=== PATIENT | female | born 1990 | race Hispanic/Latino ===

== ENCOUNTER 2017-04-10 15:03 | Observation (INO) | payer BC ==
[2017-04-10 15:09] VITALS: BMI 37.5
--- NOTE | 2017-04-10 16:11 | ED PDOC ---
Arrival/HPI - History of Present Illness Time/Duration: > month Symptom Onset: Gradual Symptom Course: Intermittent Quality: Pressure, Tightness Activities at Onset: Rest Context: Home <LOPEZ BECKHAM - Last Filed: 04/10/17 16:52> <Lidia Salvador - Last Filed: 04/10/17 17:26> - General Chief Complaint: Palpitations Time Seen by Provider: 04/10/17 15:05 - History of Present Illness Narrative History of Present Illness (Text): 04/10/17 16:00 Mrs. Joseph is a 26 year old female with no significant past medical history presents to the [facility] [place] her PMD's office for abnormal labs/testing done in [place]. Patient reports that she recently returned from [place], where she was taking care of her ill father for 9 months, and while there she was evaluated extensively for an "abnormal heart beat". Testing, per patient, includes cardiac MRI, 72 hour holter monitor, and echocardiogram. They reportedly told her that "one side of her heart isn't working as well as the other" and that her heart "skips a beat as well as increases in rate while she' s sleeping 120-146". Patient reports that for several months she experiences self limited episodes of vertigo, non-radiating chest pressure and shortness of breath. These episodes last anywhere from 5 to 30 minutes but resolve without intervention. Currently, patient endorses substernal chest tightness and pressure that is non-radiating with minimal associated SOB. Patient denies fever , chills, headache, changes in her vision, chest pain, palpitations, cough, hemoptysis, abdominal pain, N/V, diarrhea, pain/burning with urination, rashes, or any numbness/tingling/weakness/pain/swelling in any of her extremities. 04/10/17 16:48 (LOPEZ BECKHAM) Past Medical History - Provider Review Nursing Documentation Reviewed: Yes - Travel History Have you recently traveled outside [place] w/in the past 3 mons?: Yes If Yes, travel location?: [place] - Past History Past History: No Previous - Infectious Disease Hx of Infectious Diseases: None - Tetanus Immunization Tetanus Immunization: Unknown - Past Medical History Past Medical History: No Previous - Cardiac Hx Cardiac Disorders: No - Pulmonary Hx Respiratory Disorders: No - Neurological Hx Neurological Disorder: No - HEENT Hx HEENT Disorder: No - Renal Hx Renal Disorder: No - Endocrine/Metabolic Hx Endocrine Disorders: No - Hematological/Oncological Hx Blood Disorders: No - Integumentary Hx Dermatological Disorder: No - Musculoskeletal/Rheumatological Hx Musculoskeletal Disorders: No - Gastrointestinal Hx Gastrointestinal Disorders: No - Genitourinary/Gynecological Hx Genitourinary Disorders: No - Psychiatric Hx Psychophysiologic Disorder: No Hx Substance Use: No - Surgical History Hx Section: Yes (2012) - Anesthesia Hx Anesthesia: Yes Hx Anesthesia Reactions: No Hx Malignant Hyperthermia: No - Suicidal Assessment Feels Threatened In Home Enviroment: No <LOPEZ BECKHAM - Last Filed: 04/10/17 16:52> Family/Social History - Physician Review Nursing Documentation Reviewed: Yes Family/Social History: Hypertension, CAD/ME Smoking Status: Never Smoked Hx Alcohol Use: No Hx Substance Use: No <LOPEZ BECKHAM - Last Filed: 04/10/17 16:52> Allergies/Home Meds <OLPEZ BECKHAM - Last Filed: 04/10/17 16:52> <Lidia Salvador - Last Filed: 04/10/17 17:26> Allergies/Adverse Reactions: Allergies No Known Allergies Allergy (Verified 04/10/17 15:34) Home Medications: Home Meds Medication Instructions Recorded Confirmed No Known Home Med 04/10/17 04/10/17 Review of Systems - Physician Review All systems were reviewed & negative as marked: Yes - Review of Systems Constitutional: Normal. absent: Fatigue, Weight Change, Fevers, Night Sweats Eyes: Normal. absent: Vision Changes, Photophobia ENT: Normal. absent: Tinnitus, Sore Throat Respiratory: SOB, Other (Denies hemoptysis). absent: Normal, Cough, Sputum, Wheezing Cardiovascular: Other (non-radiating chest tightness). absent: Normal, Chest Pain, Palpitations, Edema, Calf Pain, Syncope Gastrointestinal: Normal. absent: Abdominal Pain, Constipation, Diarrhea, Nausea, Vomiting Genitourinary Female: Normal, Other (No burning with urination). absent: Dysuria Musculoskeletal: Other Skin: Normal. absent: Rash Neurological: Normal, Other (Limited episodes of vertigo; No numbness/tingling/ weakness/swelling of any extremity). absent: Headache, Dizziness <LOPEZ BECKHAM - Last Filed: 04/10/17 16:52> Physical Exam Vital Signs Reviewed: Yes Temperature: Afebrile Blood Pressure: Normal Pulse: Regular Respiratory Rate: Normal Appearance: Positive for: Well-Appearing, Non-Toxic, Comfortable Pain Distress: None Mental Status: Positive for: Alert and Oriented X 3 - Systems Exam Head: Present: Atraumatic, Normocephalic Pupils: Present: PERRL Extroacular Muscles: Present: EOMI Conjunctiva: Present: Normal Mouth: Present: Moist Mucous Membranes Pharnyx: Present: Normal. No: ERYTHEMA, EXUDATE, TONSILS ENLARGED Nose (External): Present: Atraumatic Neck: Present: Normal Range of Motion, Trachea Midline. No: JVD, Lymphadenopathy Respiratory/Chest: Present: Clear to Auscultation, Good Air Exchange. No: Respiratory Distress, Accessory Muscle Use, Wheezes, Decreased Breath Sounds, Rales, Rhonchi, Tachypneic, Tender to Palpation Cardiovascular: Present: Regular Rate and Rhythm, Normal S1, S2, Peripheal Pulses Present. No: Irregular Rhythm, Tachycardic, Bradycardic, Rub, Gallop, Muffled Abdomen: Present: Normal Bowel Sounds. No: Tenderness, Distention, Peritoneal Signs Upper Extremity: Present: Normal Inspection, NORMAL PULSES, Capillary Refill < 2s. No: Cyanosis, Edema Lower Extremity: Present: NORMAL PULSES, Capillary Refill < 2 s. No: Normal Inspection, Edema, CALF TENDERNESS Neurological: Present: GCS=15, CN II-XII Intact, Speech Normal Skin: Present: Warm, Dry, Normal Color. No: Rashes Psychiatric: Present: Alert, Oriented x 3, Normal Insight, Normal Concentration <LOPEZ BECKHAM - Last Filed: 04/10/17 16:52> Vital Signs Temp Pulse Resp BP Pulse Ox 04/10/17 15:03 99 F 72 16 131/83 98 Medical Decision Making - EKG Interpretation Interpreted by ED Physician: Yes Type: 12 lead EKG Comparison: Com.w/previous EKG (01/25/14: 81BPM, NSR, no ST elevations/ depressions, no T-wave abnormalities) <LOPEZ BECKHAM - Last Filed: 04/10/17 16:52> <Lidia Salvador - Last Filed: 04/10/17 17:26> ED Course and Treatment: 04/10/17 16:15 Impression: 26 year old female with no significant past medical history presents to the [facility] [place] PMD's office for abnormal labs/testing done in [place] Plan: -CBC, CMP, D-Dimer, Cardias Iso's, POC test, BNP, Amylase, Lipase -Two-View Chest X-Ray -Patient to be admitted to Dr. Corrigan's service per Dr. Corrigan's request for further cardiac work-up (Dr. Unger to be consulted) -Reassess Prior Visits: Notes and results from previous visits were reviewed. 01/25/14: Patient was seen for anxiety related to work and home life. Normal EKG and refusal of CXR at that time. (LOPEZ BECKHAM) 04/10/17 17:25 Seen and examined with resident; patient apparently found to have heart disease in [place] and placed on plavix and here with near syncope and palpitations - will need observation on tele with cardio consult; resident discussed with Dr. Corrigan. (Lidia Salvador) - Lab Interpretations Lab Results: 04/10/17 16:05 04/10/17 16:05 Lab Results 04/10/17 16:05: Sodium 139, Potassium 4.2, Chloride 105, Carbon Dioxide 20 L, Anion Gap 18, BUN 16, Creatinine 0.6, Est GFR ( Amer) > 60, Est GFR (Non- Af Amer) > 60, Random Glucose 96, Calcium 9.8, Total Bilirubin 0.5, AST 34, ALT 72 H, Alkaline Phosphatase 99, Lactate Dehydrogenase 539, Total Creatine Kinase 130, Troponin I < 0.01, NT-Pro-B Natriuret Pep < 11.1, Total Protein 7.6, Albumin 4.7, Globulin 2.9, Albumin/Globulin Ratio 1.6, Amylase 46, Lipase 88 04/10/17 16:05: D-Dimer, Quantitative 0.28 04/10/17 16:05: WBC 9.8, RBC 4.67, Hgb 13.8, Hct 40.2, MCV 86.1, MCH 29.6, MCHC 34.3, RDW 13.0, Plt Count 330, MPV 9.5, Gran % 66.4, Lymph % (Auto) 24.7, Hamlin % (Auto) 6.5 H, Eos % (Auto) 2.0, Baso % (Auto) 0.4, Gran # 6.49, Lymph # 2.4, Hamlin # 0.6, Eos # 0.2, Baso # 0.04 - RAD Interpretation Radiology Orders: 04/10/17 15:36 CHEST TWO VIEWS (PA/LAT) [RAD] Stat - EKG Interpretation EKG Interpretation (Text): 04/10/17 16:20 94bpm, NSR, no ST elevations/depressions, no T-wave abnormalities, normal intervals (LOPEZ BECKHAM) - PA / TALLOW PUMPER / Resident Statement MD/DO has reviewed & agrees with the documentation as recorded. / has examined the patient and agrees with the treatment plan. <Lidia Salvador - Last Filed: 04/10/17 17:26> Disposition/Present on Arrival - Present on Arrival Any Indicators Present on Arrival: No History of DVT/PE: No History of Uncontrolled Diabetes: No Urinary Catheter: No History of Decub. Ulcer: No History Surgical Site Infection Following: None <LOPEZ BECKHAM - Last Filed: 04/10/17 16:52> - Disposition Have Diagnosis and Disposition been Completed?: Yes Disposition Time: 16:20 Patient Plan: Observation, Telemetry <Lidia Salvador - Last Filed: 04/10/17 17:26> - Disposition Diagnosis: Chest pain, Near syncope Disposition: HOSPITALIZED Condition: FAIR
[2017-04-10 16:22] LABS: BASO # 0.04 K/mm3 (0.0-2.0); BASO % 0.4 % (0.0-3.0); EOS # 0.2 (0.0-0.7); GRAN # 6.49 (1.4-6.5); GRAN % 66.4 % (50.0-68.0); HEMATOCRIT 40.2 % (36.0-48.0); LYMPH # 2.4 (1.2-3.4); LYMPH % 24.7 % (22.0-35.0); MEAN CELL VOLUME 86.1 fl (80.0-105.0); MEAN CORPUSCULAR HEMOGLOBIN 29.6 pg (25.0-35.0); MEAN CORPUSCULAR HGB CONC 34.3 g/dl (31.0-37.0); MEAN PLATELET VOLUME 9.5 fl (7.0-11.0); MONO # 0.6 (0.1-0.6); MONO % 6.5 % (1.0-6.0); WHITE BLOOD COUNT 9.8 10^3/ul (4.5-11.0)
[2017-04-10 16:29] LABS: ALB/GLOB RATIO 1.6 (1.1-1.8); ALKALINE PHOSPHATASE 99 U/L (38-126); ALT/SGPT 72 U/L (7-56); AMYLASE 46 U/L (35-125); AST/SGOT 34 U/L (14-36); BILIRUBIN,TOTAL 0.5 mg/dL (0.2-1.3); BLOOD UREA NITROGEN 16 mg/dL (7-21); CALCIUM 9.8 mg/dL (8.4-10.5); CARBON DIOXIDE 20 mmol/L (21-33); CHLORIDE 105 mmol/L (98-107); GFR AFRICAN-AMERICAN > 60; GLUCOSE,RANDOM 96 mg/dL (70-110); LIPASE 88 U/L (23-300); POTASSIUM 4.2 mmol/L (3.6-5.0); SODIUM 139 mmol/L (132-148); TOTAL PROTEIN 7.6 g/dL (5.8-8.3)
[2017-04-10 16:42] LABS: TROPONIN I < 0.01 ng/mL
--- NOTE | 2017-04-10 18:19 | RAD ---
HISTORY: Chest pain. COMPARISON: No prior. TECHNIQUE: Chest PA and lateral FINDINGS: LUNGS: No active pulmonary disease. PLEURA: No significant pleural effusion identified. No pneumothorax apparent. CARDIOVASCULAR: Normal. OSSEOUS STRUCTURES: No significant abnormalities. VISUALIZED UPPER ABDOMEN: Normal. OTHER FINDINGS: None. IMPRESSION: No active disease.
[2017-04-10 20:44] LABS: CHOLESTEROL 224 mg/dL (130-200)
[2017-04-11 01:39] LABS: TROPONIN I < 0.01 ng/mL
--- NOTE | 2017-04-11 02:32 | CP.PCM.PN ---
Subjective - Date & Time of Evaluation Date of Evaluation: 04/11/17 Time of Evaluation: 02:31 - Subjective Subjective: Patient was seen at bedside. She complained of headache, mild , on left side. Has no other complaints. Denied dizziness, nausea, weakness, paraesthesia, eye, ear , nose symptoms. Medical record was reviewed. Admitted for chest pain, near syncope. Has no significant medical history. Objective - Vital Signs/Intake and Output Vital Signs (last 24 hours): Temp Pulse Resp BP Pulse Ox 98.7 F 76 19 117/69 98 04/10/17 23:30 04/10/17 23:30 04/10/17 23:30 04/10/17 23:30 04/10/17 23:30 - Medications Medications: Current Medications Aspirin (Ecotrin) 81 mg PO DAILY CAROLINE Famotidine (Pepcid) 40 mg PO HS CAROLINE Last Admin: 04/10/17 21:19 Dose: 40 mg - Constitutional Appears: Well, No Acute Distress - Head Exam Head Exam: ATRAUMATIC, NORMAL INSPECTION, NORMOCEPHALIC - Eye Exam Eye Exam: Normal appearance - ENT Exam ENT Exam: Normal External Ear Exam - Neck Exam Neck Exam: Normal Inspection - Respiratory Exam Respiratory Exam: NORMAL BREATHING PATTERN - Cardiovascular Exam Cardiovascular Exam: absent: JVD - GI/Abdominal Exam GI & Abdominal Exam: absent: Distended - Rectal Exam Rectal Exam: Deferred (Deferred.) - Exam Additional comments: Deferred. - Extremities Exam Extremities Exam: Normal Inspection - Back Exam Back Exam: vertebral tenderness - Neurological Exam Neurological Exam: Alert, Awake - Psychiatric Exam Psychiatric exam: Normal Affect, Normal Mood - Skin Skin Exam: Normal Color Assessment and Plan - Assessment and Plan (Free Text) Assessment: Headache. Skipped beat. Near syncope. Chest pain. Obesity. Plan: Tylenol 650 mg PO x 1. Continue present management.
[2017-04-11 06:21] LABS: BASO # 0.03 K/mm3 (0.0-2.0); BASO % 0.4 % (0.0-3.0); EOS # 0.2 (0.0-0.7); GRAN # 3.98 (1.4-6.5); GRAN % 51.7 % (50.0-68.0); LYMPH # 2.9 (1.2-3.4); LYMPH % 37.7 % (22.0-35.0); MEAN CELL VOLUME 86.9 fl (80.0-105.0); MEAN CORPUSCULAR HEMOGLOBIN 29.2 pg (25.0-35.0); MEAN CORPUSCULAR HGB CONC 33.6 g/dl (31.0-37.0); MEAN PLATELET VOLUME 9.4 fl (7.0-11.0); MONO # 0.6 (0.1-0.6); MONO % 7.2 % (1.0-6.0); RED CELL DISTRIBUTION WIDTH 13.3 % (11.5-14.5); WHITE BLOOD COUNT 7.7 10^3/ul (4.5-11.0)
[2017-04-11 06:54] LABS: ALB/GLOB RATIO 1.3 (1.1-1.8); ALKALINE PHOSPHATASE 87 U/L (38-126); ALT/SGPT 60 U/L (7-56); AST/SGOT 28 U/L (14-36); BILIRUBIN,TOTAL 0.9 mg/dL (0.2-1.3); BLOOD UREA NITROGEN 17 mg/dL (7-21); CALCIUM 9.3 mg/dL (8.4-10.5); CARBON DIOXIDE 22 mmol/L (21-33); CHLORIDE 107 mmol/L (95-110); GFR AFRICAN-AMERICAN > 60; GLUCOSE,RANDOM 89 mg/dL (70-110); POTASSIUM 4.1 mmol/L (3.6-5.0); SODIUM 141 mmol/L (132-148); TOTAL PROTEIN 7.2 g/dL (5.8-8.3)
[2017-04-11 08:07] LABS: TROPONIN I < 0.01 ng/mL
--- NOTE | 2017-04-11 08:46 | CARD ---
APPROVED REPORT EKG Measurement Heart [id number] TN [id number] <Conclusion> Normal sinus rhythm Normal ECG No change
--- NOTE | 2017-04-11 14:44 | CON ---
DATE: 04/11/2017 REASON FOR CONSULTATION: Cardiac evaluation, abnormal EKG, abnormal heart function and abnormal lab in [place]. The patient was seen by Dr. Corrigan in the office and sent for evaluation. BRIEF CLINICAL HISTORY: This is a 26-year-old female with past medical history significant for eclampsia during the last and her mother is a nurse in [place] and recently test was done including MRI, Holter and Echo and was told her heart was not pumping good, 15% heart is pumping and has a skipped beat. Yesterday, the patient went to see Dr. Corrigan and mentioned that when she sleeps her heart rate was 126. She had an EKG and sent the patient to ER for cardiac evaluation. The patient complains of dyspnea on exertion on climbing stairs, very short of breath and feels very tired. The patient initially workup done in [place] while visiting her dad who underwent coronary artery bypass surgery recently, the patient did not pay attention to her health and later on came here. Yesterday, went to see Dr. Corrigan and was sent for cardiac evaluation. PAST MEDICAL HISTORY: As mentioned above, says that her heart has skipped beat, abnormal heart beat and heart pump 15% and becomes fast when she sleeps. SOCIAL HISTORY: Denies smoking, denies any history of alcohol abuse. CURRENT MEDICATIONS: None. FAMILY HISTORY: Coronary artery disease in the father, had coronary artery bypass surgery. REVIEW OF SYSTEMS: As per HPI. PHYSICAL EXAMINATION VITAL SIGNS: As follows, temperature afebrile, heart rate 70, blood pressure 140/84. HEENT: PERRLA. Extraocular muscles intact. NECK: Supple. No carotid bruit or no thyromegaly. CHEST: Clear to auscultation. HEART: S1 and S2, regular. ABDOMEN: Soft. EXTREMITIES: Clubbing and cyanosis negative. LABORATORY DATA: Blood workup as follows: WBC 4.7, hemoglobin 13.1, hematocrit 39.0, and platelet count 319. Chemistry shows sodium 141, potassium 4.1, chloride 107, carbon dioxide 22, anion gap of 16, BUN 17, and creatinine 0.7, Troponin 0.01. IMPRESSION: Rule out cardiomyopathy. Rule out paroxysmal atrial fibrillation. Rule out mitral regurgitation. Rule out any structural heart disease. RECOMMENDATIONS: We will do a lipid profile, TSH, echo with stress test. Further recommendation after initial workup. Monitored in telemetry. EKG showed normal sinus heart rate of 94. No acute ST-T changes noted. Further recommendations will depend on hospital course. We will follow with you.. Thank you Dr. Corrigan for providing us the opportunity in taking care of the patient, Vira Joseph. Jelani Thomas MD
--- NOTE | 2017-04-11 17:23 | CARD ---
APPROVED REPORT EXAM: Two-dimensional and M-mode echocardiogram with Doppler and color Doppler. INDICATION CP/LVFX 2D DIMENSIONS Left Atrium (2D)4.5 (1.6-4.0cm)IVSd0.9 (0.7-1.1cm) LVDd4.4 (3.9-5.9cm)PWd1.1 (0.7-1.1cm) LVDs2.9 (2.5-4.0cm)FS (%) 32.9 % LVEF (%)61.6 (>50%) M-Mode DIMENSIONS Aortic Root3.00 (2.2-3.7cm)Aortic Cusp Exc.1.70 (1.5-2.0cm) Aortic Valve AoV Peak Rudqxiij020.0cm/Costa Peak GR.10mmHg Mitral Valve MV E Pmuucewk70.1cm/sMV A Argegbbu79.5cm/sE/A ratio0.9 TDI Lateral E' Peak V14.10cm/sMedial E' Peak V9.85cm/sE/Lateral E'5.1 E/Medial E'7.3 Pulmonary Valve PV Peak Mehbmetd94.5cm/sPV Peak Grad.3mmHg Tricuspid Valve TR Peak Mqfkqsax847mx/sRAP [id number] Peak Gr.28mmHg GVVC46cxRm LEFT VENTRICLE The left ventricle is normal size. There is normal left ventricular wall thickness. The left ventricular function is normal.EF-55-60% There is normal LV segmental wall motion. Transmitral Doppler flow pattern is Grade III-reversible restrictive diastolic dysfunction. No left ventricle thrombus noted on this study. There is no ventricular septal defect visualized. There is no left ventricular aneurysm. There is no mass noted in the left ventricle. RIGHT VENTRICLE The right ventricle is normal size. There is normal right ventricular wall thickness. The right ventricular systolic function is normal. ATRIA The left atrium is borderline dilated. The right atrium size is normal. The interatrial septum is intact with no evidence for an atrial septal defect. AORTIC VALVE The aortic valve is normal in structure. No aortic regurgitation is present. There is no aortic valvular stenosis. There is no aortic valvular vegetation. MITRAL VALVE The mitral valve is thickened but opens well. Mitral regurgitation is mild. There is no mitral valve stenosis. There is no evidence of mitral valve prolapse. TRICUSPID VALVE The tricuspid valve leaflets are thickened , but open well. There is mild tricuspid regurgitation.RVSP-38 mmof Hg. There is no tricuspid valve stenosis. There is no tricuspid valve prolapse or vegetation. PULMONIC VALVE The pulmonic valve is borderline thickened. There is trace pulmonic valvular regurgitation. There is no pulmonic valvular stenosis. GREAT VESSELS The aortic root is normal in size. The ascending aorta is normal in size. The pulmonary artery is normal. The IVC is normal in size and collapses >50% with inspiration. PERICARDIAL EFFUSION There is no pleural effusion. There is no pericardial effusion. <Conclusion> The left ventricle is normal size. There is normal left ventricular wall thickness. The left ventricular function is normal.EF-55-60% Mitral regurgitation is mild. There is mild tricuspid regurgitation.RVSP-38 mmof hg.
--- NOTE | 2017-04-11 20:26 | CARD ---
APPROVED REPORT Protocol: PIA Test Type: Sestamibi Stress Test Attending Physician: Dr. Jelani Unger Referring Physician: Dr. Ramya Corrigan Test Indications: Chest Pain Height:5 ft 9 in Weight:253lbs Medications: Asaprin,Pepcid Medical History: 26 y/o female. Hx of chest pain,family hx of heart disease. Target HR: 192 bpm Resting ECG: RSR. Resting Heart Rate: 98 bpm Resting Blood Pressure: 114/80mmHg Submaximum (85%): 163 bpm POST EXERCISE Reason for Termination: Fatigue and Dizzyness. Target HR: No Max HR: 173 bpm 90% of Maximum Predicted HR: 192 bpm Exercise duration: 09:01 min:sec, 4 Stage Exercise capacity: 10.1METs Max Blood Pressure: 180/78mmHg Blood Pressure response to exercise: normal resting BP - appropriate response Heart Rate response to exercise: appropriate Chest Pain: No, none Angina index: 0 Arrhythmia: No, none ST Change: No, none Deviation: 0 mm TEST SUMMARY [id number]:[id number]/.0. [id number]/80.0. PRETESTHYPERV.00:[id number]/80.0. PRETESTWARM-UP06:590.00.01.098/.0. EXERCISESTAGE 103:001.710.04.6123/.0. EXERCISESTAGE 203:[id number]/80.0. EXERCISESTAGE 303:[id number]/80.0. EXERCISESTAGE 400:013.576.022.5271/.0. [id number]:[id number]/78.0. INTERPRETATION Stress EKG Conclusion: MYOVIEW NUCLEAR STRESS TEST STOPPED AFTER 9 MINUTES OF PIA PROTOCOL DUE TO FATIGUE. PATIENT ACHIEVED 90% OF PREDICTED HEART RATE. NO CHEST PAIN. NO ST-T CHANGES. NUCL;EAR SCAN REPORT PENDING. Signed by Jelani Unger Electronically Approved: 04/11/2017 12:04:15 EXAM: Myocardial Perfusion REST/STRESS Stress Test Type: Exercise Treadmill Imaging Protocol Rest Spect myocardial perfusion imaging was performed in supine position 50 minutes following the injection of 10.4 mCi of Tc-99 Myoview. At peak stress, the patient was injected intravenously with 30.9mCi of Tc-99 tetrofosmin after an exercise time of 9 minutes and 01 seconds. Gated Stress Spect was performed 65 minutes after intravenous Tc-99 Myoview injection. The images were gated to evaluate regional wall motion and calculate ventricular ejection fraction.Images were reconstructed using backfilter projection method in short horizontal and verticle long axis. Spect slices were generated. LV Perfusion The quality of the study is good. The left ventricle is within normal limits in size. The right ventricle is unremarkable. The lung uptake is normal. The distribution of tracer reveals mildly and diffusely decreased perfusion involving anterior wall on the stress study. The remainder of the LV myocardium is unremarkable. The rest myocardial perfusion study shows no significant change. Wall Motion Wall motion study shows good contractility of the left ventricle. LVEF = 64%. Conclusion 1. Essentially normal SPECT myocardial perfusion study. 2. Fixed, anterior defect is most likely due to breast attenuation. 3. Normal gated wall motion of the left ventricle.
--- NOTE | 2017-04-11 21:15 | CON ---
PULMONARY CONSULTATION DATE: 04/11/2017 REFERRING PHYSICIAN: Ramya Corrigan MD REASON FOR CONSULT: Cardiomyopathy, shortness of breath, may have sleep apnea syndrome. HISTORY OF PRESENT ILLNESS: This is a 26 years old female with history of hypertension and since her delivery she has gained a lot of weight, admit to have a loud snoring, and daytime sleepy. She recently traveled to [place], where her mother is a physician, apparently she had echocardiogram done where she was told that she has high pressures and . She came back to [facility], seen Dr. Corrigan complaining about shortness of breath and was sent to ER and admitted. Presently, sitting up in a bed, complaining of loud snoring, daytime sleepy, tired, and short of breath with exertion. Also has an uncontrolled hypertension. As outpatient has been taking some medication from [place] though. PAST MEDICAL HISTORY: Hypertension and obesity. FAMILY HISTORY: Extensive history of coronary artery disease. SOCIAL HISTORY: Denies smoking or alcohol. MEDICATIONS: She is Ecotrin 81 mg daily and Pepcid 40 mg daily. REVIEW OF SYSTEMS: No headache, no rhinitis. Admits to have snoring, daytime sleepy, and tired. She has on and off palpitations, short of breath with exertion. No chest pain at present. No nausea, vomiting, or diarrhea. No leg pain or leg swelling. PHYSICAL EXAMINATION GENERAL: In no acute distress. VITAL SIGNS: Temperature 98, heart rate is 75, respiratory rate is 20, blood pressure 128/60, and pulse ox 99% on room air. HEENT: Moist mucous membrane. Crowded airway. Mallampati score is IV. NECK: Supple. No JVD. LUNGS: Fair airflow with few rhonchi. HEART: S1 and S2. ABDOMEN: Soft and nontender. No organomegaly. EXTREMITIES: There is no edema. NEUROLOGICAL: Awake and alert. Follows simple commands. LABORATORY DATA: Shows hemoglobin 13.1, hematocrit 39.0, WBC 7.7, platelet is 319, D-dimer is 0.28. Sodium 141, potassium 4.1, chloride 107, bicarbonate 22, BUN 17, creatinine 0.7. Glucose 89, hemoglobin A1c 5.5, calcium 9.3, AST 28, ALT 60, alkaline phosphorus 87, LDH 399, troponin less than 0.01, albumin is 4.0, TSH 2.2. Echocardiogram done today shows unremarkable LV, but right ventricular systolic pressure is 38. She had chest x-ray done, which showed no active pulmonary disease. IMPRESSION AND PLAN: Obstructive sleep apnea syndrome, history of hypertension, pulmonary hypertension, and obesity. She will need sleep study as outpatient. Also suggest PFT. We will suggest to do venous Doppler lower extremity and VQ scan to rule out thromboembolic disease because of pulmonary hypertension even though mild, but she is complaining about symptoms. Thank you and we will follow with you. Jelani Elam MD
[2017-04-12 00:02] VITALS: RESP 20
--- NOTE | 2017-04-12 10:09 | HP ---
CHIEF COMPLAINT: Shortness of breath, chest pain. HISTORY OF PRESENT ILLNESS: Ms. Constantino is a 26-year-old, my private patient with a history of hypertension, since had a delivery, she has gained lot of weight, admits to have a lot of snoring and daytime sleepy. Recently, traveled to [place], stayed there for couple of months. Her mother is physician. Apparently, she had echocardiography done that shows left ventricular hypertrophy. She showed me a copy. In [place], she was given Plavix, aspirin, and some blood pressure medicine. She came back to [facility], came in my office with the complaints of shortness of breath, chest pain, was not taking any medications. I sent her to [facility] emergency room. The patient is seen in telemetry right now, went for hypertension. PAST MEDICAL HISTORY: Hypertension and obesity. FAMILY HISTORY: Extensive history of coronary artery disease. SOCIAL HISTORY: No smoking, no drugs, no ethanol. HOME MEDICATIONS: Ecotrin, Pepcid. As per the patient, taking Plavix from [place]. REVIEW OF SYSTEMS: The patient was seen and examined on the beside in the telemetry, right now looking comfortable. No nausea, vomiting, or diarrhea. No hematuria or hematochezia. No swelling of the leg. No chest pain. At this moment, no headache, no dizziness. Earlier day, she has episode of headache and Tylenol was given by Dr. Selby, [place] physician. No swelling of the leg. PHYSICAL EXAMINATION: VITAL SIGNS: Temperature 98.5, pulse 103, 75, 85, 74, 55; blood pressure 128/69, respiratory rate 18. HEENT: Head is normocephalic and atraumatic. Eyes: PERRLA. Extraocular muscles are intact. Conjunctivae clear. Nose is patent. Mucous membrane is moist. NECK: Supple. No carotid bruit or thyromegaly. CHEST: Bilaterally symmetrical. HEART: S1 and S2 positive. LUNGS: Clear to auscultation. ABDOMEN: Soft. Bowel sounds present. No organomegaly. EXTREMITIES: No edema. No cyanosis. NEUROLOGIC: The patient is awake and alert. Moving all four extremities. No focal deficits. LABORATORY DATA: White blood cells 7.7, hemoglobin 13.1, hematocrit 39.0, platelets 319. Sodium 141, potassium 4.1, BUN 17, creatinine 0.7, AST 50, triglyceride 193, cholesterol 224, LDL 154. ASSESSMENT AND PLAN: Ms. Constantino is a 21 years old lady with hypercholesterolemia, hypertriglyceridemia, abnormal liver function test, history of hypertension, obesity, rule out obstructive sleep apnea syndrome, pulmonary hypertension. Reviewed Dr. Elam's notes. According to that, the patient needs sleep study, also suggested PFT. Positive venous Doppler of the lower extremities and ventilation/perfusion scan to rule out thromboembolic disease. Because of pulmonary hypertension even though mild, but she is complaining about symptoms. Seen by Dr. Thomas, welder tool and die, rule out cardiomyopathy as per Dr. Thomas, rule out paroxysmal atrial fibrillation, mitral regurgitation, rule out any structural heart disease. The patient went for stress test, monitoring the patient in the telemetry. EKG shows normal sinus heart rate of 94, no acute ST-T changes noted. According to Dr. Roberto Lanier, stress test shows essentially normal SPECT myocardial perfusion study, defect is most likely due to the breast attenuation and normal anterior wall motion of the left ventricle, ejection fraction 64%. Chest x-ray done, reviewed by me, is no active disease. Appreciated Dr. Elam and Dr. Thomas's input. The patient is going for duplex study of the lower extremities getting Ecotrin, Pepcid, and Tylenol. We will repeat labs. We will start Lipitor for hypercholesterolemia. We will follow up. Ramya Corrigan MD MTDKrunal
--- NOTE | 2017-04-12 14:22 | PN ---
DATE: 04/12/2017 LOCATION: Patient in room 370, bed 2. REASON FOR CONSULTATION: Followup abnormal EKG, history of palpitation during the night, the patient was told in that her heart pump works 15%. The patient gets fatigued. SUBJECTIVE: The patient lying flat in bed without chest pain, shortness of breath, palpitation. PHYSICAL EXAMINATION VITAL SIGNS: Blood pressure 127/81, respirations 20, pulse 81, temperature 98.4. HEENT: Normocephalic. Pupils, normal. Conjunctivas, normal. Nose and throat, normal. NECK: JVP. Carotids are equal. THORAX: AP diameter normal. LUNGS: Clear. CARDIOVASCULAR: S1 and S2. ABDOMEN: Soft, no tenderness, no organomegaly. Bowel sounds normal. EXTREMITIES: No clubbing. No cyanosis. LABORATORY DATA: WBC 7.7, hemoglobin 13.1, hematocrit 39.0, platelets 319. Sodium 141, potassium 4.1. BUN 17. Creatinine 0.7. AST 28. ALT 60. Troponin time two negative. TSH 2.2. Triglycerides 193,. Cholesterol 224. LDL 154. HDL 49. The patient had echo on 04/11, which showed left ventricular normal size. Normal ventricle wall thickness. Left ventricle ejection fraction normal 55% to 60%. Mild mitral regurgitation. Mitral tricuspid regurgitation. RVSP 38 mmHg. The patient yesterday had a stress test, which showed normal myocardial scan with LV ejection fraction around 60% to 64%. DIAGNOSES: Palpitation during the night, rule out cardiac arrhythmia. The patient had eclampsia during the last so they are concerned about cardiomyopathy. The patient is on aspirin 81 mg daily, atorvastatin 10 mg daily, advised the patient to start exercise and lose weight. Follow low cholesterol diet. We will follow with you. Jelani Unger MD
--- NOTE | 2017-04-12 21:35 | PN ---
DATE: SUBJECTIVE: The patient is a 26 years old female. The patient is seen and examined at the bedside. Looking comfortable. asked about the patient, last night during sleep she was having palpitations. No fever. No chills. No headache. No dizziness. PHYSICAL EXAMINATION: VITAL SIGNS: Temperature 97.7, pulse 73, blood pressure 130/83, and respiratory rate 20. HEENT: Head, normocephalic and atraumatic. Eyes, PERRLA. Extraocular muscles intact. Conjunctivae clear. Nose patent. Mucous membranes moist. NECK: Supple. No carotid bruits. No JVD or thyromegaly. CHEST: Bilaterally symmetrical. HEART: S1 and S2 positive. LUNGS: Clear to auscultation. ABDOMEN: Soft. Bowel sounds positive. No organomegaly. EXTREMITIES: No edema. No cyanosis. NEUROLOGICAL: The patient is awake and alert. Moving all 4 extremities. No focal deficits. MEDICATIONS: Ecotrin, Lipitor, Pepcid, and Tylenol. LABORATORY DATA: White blood cell 7.7, hemoglobin 13.1, hematocrit 39.0, and platelets 319. Sodium 141, potassium 4.1, BUN 17, and creatinine 0.7. AST 60 and triglycerides 193. ASSESSMENT AND PLAN: Ms. Vira Joseph is a 26 years old lady with abnormal liver function test, hypercholesterolemia, hypertriglyceridemia, and obesity, seen by Dr. Unger, nipple threader. According to Dr. Unger, it looks like the patient has cardiac arrhythmia. The patient has history of during last , so they are concerned about post- cardiomyopathy. The patient on aspirin and getting atorvastatin for hypertriglyceridemia. Asked her to lose weight. Education done. Seen by Dr. Elam, railroad detective. The patient is suppose to go for weekly scan to rule out pulmonary embolism and pulmonary hypertension. It looks like the patient has obstructive sleep apnea syndrome. According to Dr. Elam, the patient needs sleep study and PFT. Extremity ultrasound is done, results are pending. Chest x-ray done reviewed by me. Electrocardiogram done. We will continue present treatment. Gastrointestinal and deep venous thrombosis tube prophylaxis. Repeat labs. We will follow. Ramya Corrigan MD MTDD
--- NOTE | 2017-04-12 21:38 | US ---
HISTORY: Leg pain and swelling. Evaluate for DVT PHYSICIAN(S): Macario Espinal MD. TECHNIQUE: Duplex sonography and color-flow Doppler with graded compression were used to evaluate the deep venous systems of both lower extremities. FINDINGS: The visualized deep venous systems of both lower extremities are sonographically normal and compressible. Normal wave forms and augmentation are seen. There is no sonographic evidence for deep venous thrombosis in the visualized segments of both lower extremities. IMPRESSION: No sonographic evidence for deep venous thrombosis in the visualized segments of both lower extremities.
--- NOTE | 2017-04-12 22:24 | PN ---
PULMONARY PROGRESS NOTE DATE: 04/12/2017 REFERRING PHYSICIAN: Dr. Corrigan. SUBJECTIVE: She is sitting up in bed. Day was unremarkable. Feels okay. No headache. No rhinitis, no nausea, no vomiting, diarrhea, leg pain or leg swelling. OBJECTIVE GENERAL: No acute distress. VITAL SIGNS: Temperature is 98, heart rate is 73, respiratory rate is 20, blood pressure 130/80 and pulse ox 99% on room air. HEENT: Moist mucus membrane. Crowded airway. Mallampati score is IV. NECK: Supple. No JVD. LUNGS: Has a fair airflow with few rhonchi. HEART: S1 and S2. ABDOMEN: Soft and nontender. No organomegaly. EXTREMITIES: No edema. NEUROLOGIC: Awake and alert. Follows simple commands. MEDICATIONS: She is on Ecotrin 81 mg daily, Lipitor 10 mg daily and Pepcid 40 mg at bedtime. LABORATORY DATA: Hemoglobin yesterday 13.1. D-dimer is 0.28 yesterday. Sodium 141, potassium 4.1 and chloride 107. Triglycerides 193 and cholesterol is 224. Urine is negative. Hepatitis profile is negative. Has venous Doppler done. Report is pending. Echocardiogram is back, LV is good and has a mild pulmonary hypertension, but V/Q scan is pending. IMPRESSION AND PLAN: Obstructive sleep apnea syndrome, pulmonary hypertension, hypertension, obesity, rule out thromboembolic disease, lower extremity Doppler done, but report is pending. The patient seems stable. If need to, could be discharged and can do V/Q scan as an outpatient, but the patient is still here, we will finish the V/Q scan and outpatient will need sleep study and pulmonary function test. Thank you and we will follow with you. Jelani Elam MD
[2017-04-13 08:39] VITALS: BP 121/68; PULSE 68; TEMP 97.5; O2SAT 98
--- NOTE | 2017-04-13 11:17 | NM ---
COMPARISON: Chest radiograph 04/10/2017. TECHNIQUE: 33.0 mCi technetium 99-m DTPA aerosol. 3.3 mCI technetium 99-m MAA administered intravenously. FINDINGS: VENTILATION COMPONENT: Normal. PERFUSION COMPONENT: Normal. IMPRESSION: Lowprobability ventilation perfusion scan for pulmonary embolism.
--- NOTE | 2017-04-13 22:28 | PN ---
PULMONARY PROGRESS NOTE DATE: 04/13/2017 REFERRING PHYSICIAN: Dr. Corrigan. SUBJECTIVE: The patient is getting ready to go home. Feels okay. Had a V/Q scan done, which reported as negative. Gets some palpitations with exertion. Admit to have snoring, daytime sleepy and tired. No nausea or vomiting. No diarrhea. No leg pain and no leg swelling. PHYSICAL EXAMINATION: GENERAL: In no acute distress. VITAL SIGNS: Temperature is 98, heart rate is 68, respiratory rate is 18, blood pressure is 121/68, pulse ox 98% on room air. HEENT: Moist mucous membranes. Crowded airway. Mallampati score is IV. NECK: Supple. No JVD. LUNGS: Has a fair airflow with few rhonchi. HEART: S1 and S2. ABDOMEN: Soft and nontender. No organomegaly. EXTREMITIES: No edema. NEUROLOGICAL: Awake and alert. Follows simple commands. MEDICATIONS: She is on Ecotrin 81 mg daily, Pepcid 40 mg daily and Lipitor 10 mg daily. LABORATORY DATA: Reviewed. No new lab is available. Had a V/Q scan done, which shows low probability of ventilation-perfusion scan showing pulmonary embolism. Venous Doppler of lower extremity negative for DVT. IMPRESSION AND PLAN: Pulmonary hypertension, obesity, may have sleep apnea syndrome, history of hypertension and hyperlipidemia. Case discussed with Dr. Corrigan. May discharge home. Outpatient sleep study and pulmonary function test. Needs to lose weight. Sleep apnea precaution. Thank you and we will follow with you. Jelani Elam MD
--- NOTE | 2017-04-23 03:32 | DS ---
CHIEF COMPLAINT: Palpitation. HISTORY OF PRESENT ILLNESS: The patient is a 26-year-old female with no significant past medical history, actually came into my office for abnormal testing and labs done in [place]. The patient reports that she recently returned from [place]. She became ill when she went to see her father. She stayed there for 9 months. In [place], they did her EKG, echocardiography and testing and put her on Plavix, aspirin and some blood pressure medicine, but when she came into my office, blood pressure was normal, but I was not comfortable keeping her Plavix on without diagnosis. According to the patient, they told her she skips her heartbeat. According to the patient, she is not sleeping well, having vertigo. We admitted the patient, did stat chest x-ray, myocardial stress test and lung scan, seen by Dr. Elam, portfolio lead and Dr. Unger, penetration tester. Stress test was done, she felt better, sent home, will followup with portfolio lead to rule out pulmonary hypertension and sleep apnea. PAST MEDICAL HISTORY: Obesity and hypertension. FAMILY HISTORY: Extensive history of coronary artery disease. SOCIAL HISTORY: No smoking. No drug. No ethanol. HOME MEDICATIONS: Ecotrin and Pepcid. As per the patient, Plavix given in [place]. REVIEW OF SYSTEMS: The patient was seen and examined on the bedside, looking comfortable. No nausea, vomiting, or diarrhea. No hematuria or hematochezia. palpitation. No headache. No dizziness. No chest pain. No fevers. No chills. PHYSICAL EXAMINATION: VITAL SIGNS: Temperature 98, heart rate 58, respiratory rate 18, blood pressure 120/68 and pulse oximetry 98% on room air. HEENT: Head is normocephalic and atraumatic. Eyes, PERRLA. Extraocular muscles are intact. Conjunctivae are clear. Nose is patent. Mucous membranes are moist. NECK: Supple. No carotid bruits, JVD, or thyromegaly. CHEST: Bilaterally symmetrical. HEART: S1 and S2 positive. LUNGS: Clear to auscultation. ABDOMEN: Soft. Bowel sounds present. No organomegaly. EXTREMITIES: No edema. No cyanosis. NEUROLOGICAL: The patient is awake and alert. Moving all 4 extremities. No focal deficits. In the hospital, the patient was given Ecotrin, Pepcid and Lipitor. LABORATORY DATA: The patient had a V/Q scan done which shows low probability, showing pulmonary embolism. Venous Doppler of lower extremity was negative for DVT. White blood cells 7.7, hemoglobin 13.1, hematocrit 29.0 and platelets 319. Sodium 141, potassium 4.1, BUN 17, creatinine 0.7, ALT 60, triglyceride 196, cholesterol 224, LDL 164. ASSESSMENT AND PLAN: The patient is a 26-year-old lady with abnormal liver function test, hypercholesterolemia, hypertriglyceridemia. Hepatitis serology is negative. Urine for test was negative. Seen by Dr. Elam, portfolio lead, rule out obstructive sleep apnea syndrome, obesity, hypertension, pulmonary hypertension. Discussion done with Dr. Elam, discharged the patient to home and need outpatient pulmonary function test and sleep apnea study, urged to lose weight, apnea precautions, seen by Dr. Unger also. Bone scan done with low probability. Stress test done. Palpitation resolved. Palpitation coming mainly at night, rule out cardiac arrhythmias. The patient had eclampsia during the last , so they are concerned about cardiomyopathy. The patient is on aspirin and atorvastatin. Advised the patient to start exercise and lose weight. We will follow. Ramya Corrigan MD MTDD
== END 2017-04-13 15:57 | disposition home or self-care (01) ==
LOC: ED 15:03 → ERH 16:23 → 2RNO 20:19 → 3RSO 04-12 00:48 → INTOOBSV 04-12 21:18 → OBSVTOIN 04-12 21:18
PROVIDERS: ADMIT Internal Medicine; ATTEND Internal Medicine
DX: R00.2 Palpitations (principal); R07.9 Chest pain, unspecified; R55 Syncope and collapse; I10 Essential (primary) hypertension; I27.2 Other secondary pulmonary hypertension; G47.33 Obstructive sleep apnea (adult) (pediatric); E78.2 Mixed hyperlipidemia; R51 Headache; E66.9 Obesity, unspecified; Z68.37 Body mass index [BMI] 37.0-37.9, adult; Z82.49 Family history of ischemic heart disease and other diseases of the circulatory system
CPT/HCPCS: 36415; 71020; 78452; 78582; 80053; 80061; 80074; 82150; 82550; 83036; 83615; 83690; 83880; 84443; 84484; 84703; 85025; 85378; 93005; 93017; 93306; 93970; 99285; A9502; G0378